=== PATIENT | female | born 1980 | race Hispanic/Latino ===

== ENCOUNTER 2016-09-19 12:05 | Emergency (ER) | payer OTHER ==
[2016-09-19 12:12] VITALS: BP 104/63; PULSE 59; RESP 18; TEMP 97.8; O2SAT 100
--- NOTE | 2016-09-19 12:54 | ED PDOC ---
Upper Extremity Pain/Injury Time Seen by Provider: 09/19/16 12:25 Chief Complaint (Nursing): Upper Extremity Problem/Injury Chief Complaint (Provider): Upper Extremity Problem/Injury History Per: Patient History/Exam Limitations: no limitations Onset/Duration Of Symptoms: Mins (a few minutes prior to arrival ) Additional Complaint(s): Christal Mayo, 36 year old female presents to the ED on 09/19/16 for a right 4th digit injury. The patient states during a fire drill occurring in the hospital a few minute prior to arrival, the patient slammed her right 4th digit in a door. The patient is right handed. Past Medical History Reviewed: Historical Data, Nursing Documentation, Vital Signs Vital Signs: Last Vital Signs Temp 97.8 F 09/19/16 12:11 Pulse 59 L 09/19/16 12:11 Resp 18 09/19/16 12:11 BP 104/63 09/19/16 12:11 Pulse Ox 100 09/19/16 12:11 - Medical History PMH: No Chronic Diseases - Surgical History Surgical History: No Surg Hx - Family History Family History: States: Unknown Family Hx - Home Medications Home Medications: Ambulatory Orders Medication Instructions Recorded Ibuprofen [Motrin] 600 mg PO Q6 #20 tab 09/19/16 - Allergies Allergies/Adverse Reactions: Allergies Allergy/AdvReac Type Severity Reaction Status Date / Time No Known Allergies Allergy Verified 09/19/16 12:23 Review of Systems ROS Statement: Except As Marked, All Systems Reviewed And Found Negative Musculoskeletal: Positive for: Hand Pain (injury to right fourth digit ) Physical Exam - Reviewed Nursing Documentation Reviewed: Yes Vital Signs Reviewed: Yes - Physical Exam Appears: Positive for: Non-toxic, No Acute Distress Head Exam: Positive for: ATRAUMATIC, NORMOCEPHALIC Extremity: Positive for: Normal ROM, Capillary Refill (less than 2 seconds ), Other (mild edema between DIP and PIP joints ) Neurologic/Psych: Positive for: Alert, Oriented (x3). Negative for: Motor/ Sensory Deficits (distal sensations intact ) - ECG O2 Sat by Pulse Oximetry: 100 (RA) Pulse Ox Interpretation: Normal Medical Decision Making Medical Decision Making: Initial Impression: Right fourth digit injury Initial Plan: * Hand Right 4th Digit (Finger) [RAD] Stat * * XR: NAD, as read by PAJuan M * * Aluminum finger splint applied. * Pt referred to [facility] for follow up. Scribe Attestation: Documented by Dior Jamison, acting as a scribe for Josselin Albrecht PA-C. Provider Scribe Attestation: All medical record entries made by the Scribe were at my direction and personally dictated by me. I have reviewed the chart and agree that the record accurately reflects my personal performance of the history, physical exam, medical decision making, and the department course for this patient. I have also personally directed, reviewed, and agree with the discharge instructions and disposition. Disposition - Clinical Impression Clinical Impression: Finger contusion - Patient ED Disposition Is Patient to be Admitted: No - Disposition Disposition: Routine/Home Disposition Time: 12:30 Condition: STABLE Additional Instructions: Follow up with [facility] Prescriptions: Ibuprofen [Motrin] 600 mg PO Q6 #20 tab Instructions: Contusion in Adults (ED) - POA Present On Arrival: Falls Or Trauma
--- NOTE | 2016-09-19 14:22 | RAD ---
PROCEDURE: Right ring finger radiographs. HISTORY: Pain COMPARISON: None. TECHNIQUE: AP radiograph of the right hand, as well as spot oblique and lateral images of ring finger were obtained. FINDINGS: RIGHT RING FINGER: Normal right ring finger, without acute fracture or focal lesion. Remainder of the right hand (as seen on the AP view) grossly unremarkable. JOINTS: Normal. SOFT TISSUES: Normal. OTHER FINDINGS: None. IMPRESSION: No acute fracture or dislocation.
== END 2016-09-19 13:25 | disposition home or self-care (01) ==
LOC: H.ER 12:05
DX: S60.041A Contusion of right ring finger without damage to nail, initial encounter (principal); W22.8XXA Striking against or struck by other objects, initial encounter; Y99.0 Civilian activity done for income or pay